=== PATIENT | male | born 2000 | race Two or more races ===

== ENCOUNTER 2023-01-23 22:36 | Emergency (ER) | payer MEDICAID ==
[~2023-01-23] VITALS: Ht 160 cm; Wt 62.7 kg
[2023-01-23] MEDS ORDERED: NAPR-1197 PO (22:40)
[2023-01-23] MEDS ORDERED: IBUPROFEN 600 MG TABLET PO ONE (23:15)
[2023-01-23 23:55] LABS: APPEARANCE,URINE CLEAR (CLEAR); BILIRUBIN,URINE NEGATIVE (NEGATIVE); COLOR,URINE LIGHT YELLOW (YELLOW); GLUCOSE, URINE (UA) NEGATIVE (NEGATIVE); KETONES,URINE NEGATIVE (NEGATIVE); LEUKOCYTE ESTERASE ,URINE NEGATIVE (NEGATIVE); NITRATE,URINE NEGATIVE (NEGATIVE); OCCULT BLOOD,URINE NEGATIVE (NEGATIVE); PROTEIN,URINE NEGATIVE (NEGATIVE); UROBILINOGEN,URINE <=1.0 mg/dL (<=1.0)
[2023-01-24 03:00] VITALS: BP 124/66; PULSE 73; RESP 18; TEMP 97.3
[2023-01-26 03:06] LABS: HIV 1-2 SCREEN 4TH GEN W/RFLX Non Reactive (Non Reactive)
== END 2023-01-24 03:00 | disposition home or self-care (01) ==
LOC: EMS 22:36
DX: N50.812 Left testicular pain (principal)
CPT/HCPCS: 76870; 81003; 86592; 87389; 87491; 87591; 99284